=== PATIENT | female | born 1935 | race Caucasian/White ===

== ENCOUNTER 2017-01-26 18:25 | Observation (INO) | payer MEDICARE, OTHER ==
[2017-01-26 18:34] VITALS: PULSE 63; RESP 20; TEMP 98.3; O2SAT 99
[2017-01-26 19:14] LABS: RBC URINE < 1 /hpf (0-3); TRANSITIONAL EPITHIAL < 1 /hpf (0-3); URINE BACTERIA RARE (<OCC); URINE BILIRUBIN NEGATIVE (NEGATIVE); URINE BLOOD NEGATIVE (NEGATIVE); URINE COLOR Yellow (YELLOW); URINE GLUCOSE (UA) NORMAL (Normal); URINE KETONE NEGATIVE (NEGATIVE); URINE LEUKOCYTE ESTERASE 1+ Leu/uL (Negative); URINE PROTEIN NEGATIVE (NEGATIVE); URINE UROBILINOGEN NORMAL mg/dL (0.2-1.0); WBC URINE 1 /hpf (0-5)
--- NOTE | 2017-01-26 19:55 | C.PDOC ---
History Of Present Illness 81 y/o female presents to the ED with complaints of sharp LLQ abdominal pain radiating to left lower back x2 days. Pain worse with walking. Pt denies similar symptoms in the past. Denies fever, chills, nausea, vomiting, diarrhea, urinary changes, vaginal bleeding or any other complaints. PMD Mckay. NKDA Time Seen by Provider: 01/26/17 19:47 Chief Complaint (Nursing): Abdominal Pain History Per: Patient History/Exam Limitations: no limitations Onset/Duration Of Symptoms: Days Current Symptoms Are (Timing): Still Present Severity: Moderate Location Of Pain/Discomfort: LLQ Quality Of Discomfort: Sharp Associated Symptoms: denies: Fever, Nausea, Vomiting, Diarrhea, Urinary Symptoms Exacerbating Factors: Walking Alleviating Factors: None Recent travel outside of the [place]: No Additional History Per: Family Abnormal Vaginal Bleeding: No Past Medical History Reviewed: Historical Data, Nursing Documentation, Vital Signs Vital Signs: Last Vital Signs Temp 98.3 F 01/26/17 18:30 Pulse 63 01/26/17 18:30 Resp 20 01/26/17 18:30 BP 178/72 H 01/26/17 18:30 Pulse Ox 99 01/26/17 22:24 - Medical History PMH: Arthritis, HTN, Hypothyroidism Family History: States: Unknown Family Hx - Social History Hx Tobacco Use: No Hx Alcohol Use: No Hx Substance Use: No - Immunization History Hx Tetanus Toxoid Vaccination: No Hx Influenza Vaccination: No Hx Pneumococcal Vaccination: No Review Of Systems Except As Marked, All Systems Reviewed And Found Negative. Constitutional: Negative for: Fever, Chills Gastrointestinal: Positive for: Abdominal Pain (LLQ radiating to left lower back ). Negative for: Nausea, Vomiting, Diarrhea Genitourinary: Negative for: Dysuria, Frequency, Hematuria Physical Exam - Physical Exam Additional Physical Exam Comments: Constitutional: No acute distress. Head: Normocephalic. Atraumatic. Eyes: PERRL. Neck: Supple. Cardiovascular: Regular rate. Radial pulse 2+ bilaterally. Chest: No tenderness. Respiratory: Clear to auscultation bilaterally. GI: Soft. LLQ tenderness. No guarding or rebound. Nondistended. Back: No CVA tenderness. Musculoskeletal: No tenderness or swelling of extremities. Skin: No rash. Neurologic: Alert, no focal deficit. ED Course And Treatment - Laboratory Results Result Diagrams: 01/26/17 20:17 01/26/17 20:17 O2 Sat by Pulse Oximetry: 99 (room air) Pulse Ox Interpretation: Normal - CT Scan/US CT Abdomen and Pelvis With Intravenous Contrast Other Rad Studies (CT/US): Read By Radiologist, Radiology Report Reviewed CT/US Interpretation: IMPRESSION: Diverticulosis without CT findings of diverticulitis; constipation; ileus versus early obstruction possibly due to constipation; fatty liver, no acute solid visceral abnormality; gallstone ED OBSERVATION Discharge: Yes Time of observation admission: 20:00 - Observation admission statement Patient is being placed in observation because:: abd pain - Goals of Observation Goals of observation are:: CT - Progress Note Progress Note: [address] read. No acute distress. 2229 Patient in no acute distress. Labs unremarkable. CT shows constipation but patient reports BMs, unlikely obstruction and otherwise no acute pathology. Will discharge home, f/u PMD, return to ER for worsening pain, fever, vomiting, dysuria, or any other problem. Disposition - Disposition Disposition: HOME/ ROUTINE Disposition Time: 22:29 Condition: STABLE - Clinical Impression Clinical Impression: Abdominal pain - Scribe Statement The provider has reviewed the documentation as recorded by the Kerry Lara Provider Attestation: All medical record entries made by the Kerry were at my direction and personally dictated by me. I have reviewed the chart and agree that the record accurately reflects my personal performance of the history, physical exam, medical decision making, and the department course for this patient. I have also personally directed, reviewed, and agree with the discharge instructions and disposition.
[2017-01-26 20:22] LABS: BASO # 0.1 K/uL (0.0-0.2); BASO % 1.1 % (0.0-2.0); EOS # 0.9 K/uL (0.0-0.7); EOS % 11.9 % (0.0-4.0); LYMPH # 3.4 K/uL (1.0-4.3); LYMPH % 46.1 % (20.0-40.0); MEAN CELL VOLUME 89.1 fL (81.0-99.0); MEAN CORPUSCULAR HEMOGLOBIN 28.2 pg (27.0-31.0); MEAN CORPUSCULAR HGB CONC 31.7 g/dL (33.0-37.0); MEAN PLATELET VOLUME 10.4 fL (7.2-11.7); MONO # 0.6 K/uL (0.0-0.8); MONO % 8.1 % (0.0-10.0); WHITE BLOOD COUNT 7.4 K/uL (4.8-10.8)
[2017-01-26 20:45] LABS: CHLORIDE 107 mmol/L (98-107); SODIUM 141 mmol/L (132-148)
[2017-01-26 20:47] LABS: ALKALINE PHOSPHATASE 82 U/L (38-126); AST/SGOT 23 U/L (14-36); BILIRUBIN,TOTAL 0.5 mg/dL (0.2-1.3); BLOOD UREA NITROGEN 24 mg/dL (7-17); CARBON DIOXIDE 23 mmol/L (22-30); GFR AFRICAN-AMERICAN > 60; TOTAL PROTEIN 7.6 g/dL (6.3-8.3)
[2017-01-26 20:48] LABS: ALT/SGPT 22 U/L (9-52); CALCIUM 9.3 mg/dl (8.6-10.4); GLUCOSE,RANDOM 96 mg/dL (65-105)
[2017-01-26] MEDS ORDERED: Iodixanol 320 MG/ML 100 ML BOTTLE IV ONE (21:09)
--- NOTE | 2017-01-26 22:21 | CT ---
EXAM: CT Abdomen and Pelvis With Intravenous Contrast CLINICAL HISTORY: 81 years old, female; Pain; Abdominal pain; Localized; Left lower quadrant (llq); Additional info: Llq pain TECHNIQUE: Axial computed tomography images of the abdomen and pelvis with intravenous contrast. This CT exam was performed using one or more of the following dose reduction techniques: automated exposure control, adjustment of the mA and/or kV according to patient size, and/or use of iterative reconstruction technique. Coronal and sagittal reformatted images were created and reviewed. CONTRAST: 100 mL of visipaque 320 administered intravenously. EXAM DATE/TIME: 01/26/2017 7:56 PM COMPARISON: There are no prior studies for comparison. FINDINGS: Lower thorax: The heart is mildly enlarged. Distal descending aorta is ectatic. There is atelectasis at the lung bases. ABDOMEN: Liver: There is fatty infiltration of the liver. Gallbladder and bile ducts: Gallbladder is partially distended. There is a small stone in the gallbladder neck. Common bile duct is unremarkable. Pancreas: Pancreas is mildly atrophic. Spleen: unremarkable Adrenals: unremarkable Kidneys and ureters: unremarkable Stomach and bowel: Stomach is partially distended. Rotation is normal. Small bowel is distended with fluid and small amount of air. Terminal ileum is distended with fluid. Appendix is unremarkable. There is a moderately large amount of stool in the colon. There is descending and sigmoid colon diverticulosis. Appendix: See stomach and bowel PELVIS: Bladder: unremarkable Reproductive: Uterus is absent. There are no adnexal masses. ABDOMEN and PELVIS: Intraperitoneal space: There is no free air or free fluid. Bones/joints: There are degenerative changes in the osseus structures. Soft tissues: There is a small fat containing umbilical hernia. Vasculature: There are calcified phleboliths. Lymph nodes: Abdominal aorta is ectatic. There are vascular calcifications.There is no pathologic adenopathy. The IMPRESSION: Diverticulosis without CT findings of diverticulitis; constipation; ileus versus early obstruction possibly due to constipation; fatty liver, no acute solid visceral abnormality; gallstone Additional findings as described above.
[2017-01-26 23:02] VITALS: BP 176/88
== END 2017-01-26 22:57 | disposition home or self-care (01) ==
LOC: C.ER 18:25 → C.9OBSV 20:00
PROVIDERS: ADMIT Student in an Organized Health Care Education/Training Program; ATTEND Student in an Organized Health Care Education/Training Program
DX: R10.32 Left lower quadrant pain (principal)
CPT/HCPCS: 74177; 80053; 81001; 83690; 85025; 96374; 99285; G0378; J2270; Q9967

== ENCOUNTER 2017-09-20 08:47 | Inpatient (IN) | payer MEDICARE, OTHER ==
[2017-09-20 08:55] VITALS: BMI 24.2
[2017-09-20 10:46] LABS: INR 1.1; PROTHROMBIN TIME 12.6 SECONDS (9.7-12.2)
--- NOTE | 2017-09-20 10:46 | C.PDOC ---
History Of Present Illness 82 year old female presents to the ER complaining of 10 episodes of bleeding from rectum, onset this morning. Reports history of GI bleed, last was 4 years ago in the [facility] from unknown source. Last colonoscopy was here 1 year ago, with normal findings. Denies any dizziness, headache, shortness of breath, abdominal pain, vomiting, or diarrhea. PMD: Dr. Nolasco Time Seen by Provider: 09/20/17 09:18 Chief Complaint (Nursing): GI Problem History Per: Patient History/Exam Limitations: no limitations Onset/Duration Of Symptoms: Days (x1) Current Symptoms Are (Timing): Still Present Number Of Bleeding Episodes: Multiple: (10) Past Medical History Reviewed: Historical Data, Nursing Documentation, Vital Signs Vital Signs: Last Vital Signs Temp 98 F 09/20/17 14:13 Pulse 96 H 09/20/17 14:13 Resp 18 09/20/17 14:13 BP 105/87 09/20/17 14:13 Pulse Ox 100 09/20/17 14:13 - Medical History PMH: Arthritis, HTN, Hypothyroidism, Osteoporosis Other PMH: GI bleed Other Surgeries: Hysterectomy Family History: States: No Known Family Hx - Social History Hx Tobacco Use: No Hx Alcohol Use: No Hx Substance Use: No - Immunization History Hx Tetanus Toxoid Vaccination: No Hx Influenza Vaccination: No Hx Pneumococcal Vaccination: No Review Of Systems Except As Marked, All Systems Reviewed And Found Negative. Constitutional: Negative for: Fever, Chills Respiratory: Negative for: Shortness of Breath Gastrointestinal: Positive for: Other (Rectal bleeding x10). Negative for: Vomiting, Abdominal Pain, Diarrhea Neurological: Negative for: Weakness, Headache, Dizziness Physical Exam - Physical Exam Appears: Non-toxic, No Acute Distress Skin: Normal Color, Warm, Dry Head: Atraumatic, Normacephalic Eye(s): bilateral: Normal Inspection, PERRL, EOMI Oral Mucosa: Moist Neck: Normal, Normal ROM, Supple Chest: Symmetrical Cardiovascular: Rhythm Regular, No Murmur Respiratory: Normal Breath Sounds, No Accessory Muscle Use Gastrointestinal/Abdominal: Soft, No Tenderness Rectal: Heme Positive (bright red blood per rectum), Hemorrhoids (internal hemorrhoids noted), Other (Liquidy stool noted) Back: Normal Inspection, No CVA Tenderness, No Vertebral Tenderness Extremity: Bilateral: Atraumatic, Normal Color And Temperature, Normal ROM Neurological/Psych: Oriented x3, Normal Speech Gait: Steady ED Course And Treatment - Laboratory Results Result Diagrams: 09/20/17 13:48 09/20/17 10:27 Lab Interpretation: Abnormal (+ occult stool blood) ECG: Interpreted By Me, Viewed By Me ECG Rhythm: Sinus Rhythm Rate From EC O2 Sat by Pulse Oximetry: 100 (RA) Pulse Ox Interpretation: Normal - Radiology CXR: Interpreted by Me CXR Interpretation: Yes: No Acute Disease Progress Note: asymptomatic until approx 1330, pt syncopised in Bed 15, monitor tech HR 30's, agonal resps, lasting only a few seconds, and immediatly responded to painful stimulus and back to baseline with HR 100, SBP 140's. d/w Dr. Newton, gurpreet to ICU. d/w Dr. Reddy, understands pt upgraded to ICU. d/w Gaurav , GI Fellow- aware of pt's change of status, repeat CBC sent, bolus IVF's, 2 large bore IV's. Critical Care Time - Critical Care Note Total Time (in mins): 90 Documented critical care: time excludes all time spent performing seperately billable procedures. Medical Decision Making Medical Decision Making: Time: 9:25 Initial Plan: * Blood type and screen * CMP * Lipase * Troponin I * CBC * PTT * Prothrombin time * Occult blood, stool * Urinalysis 10:30 Will admit for lower GI bleed. Case discussed w/ Dr. Nolasco, who requests patient be admitted to hospitalist service. Paged GI on-call, Dr. Lebron, for consult 10:45 Spoke with GI fellow Gaurav, discussed case and results of last colonoscopy. Patient has history of diverticulosis, plan is observation and to defer colonoscopy until needed. Due to insurance and PMD, patient must be admitted to medical service. 12:30 Case discussed w/ gurpreet Bowen to admit patient. 1330: symptomatic- vasovagal. 1430: d/w GI Fellow, updated HGB 10.2, aware pt to ICU Disposition Counseled Patient/Family Regarding: Studies Performed - Disposition Disposition: HOSPITALIZED Disposition Time: 12:30 Condition: FAIR - POA Present On Arrival: None - Clinical Impression Clinical Impression: Lower GI bleed - Scribe Statement The provider has reviewed the documentation as recorded by the Kerry Valles Provider Attestation: All medical record entries made by the Kerry were at my direction and personally dictated by me. I have reviewed the chart and agree that the record accurately reflects my personal performance of the history, physical exam, medical decision making, and the department course for this patient. I have also personally directed, reviewed, and agree with the discharge instructions and disposition.
[2017-09-20 10:47] LABS: BASO % 0.8 % (0.0-2.0); EOS # 0.5 K/uL (0.0-0.7); EOS % 8.5 % (0.0-4.0); HEMOGLOBIN 12.5 g/dL (11.0-16.0); LYMPH # 2.1 K/uL (1.0-4.3); LYMPH % 36.2 % (20.0-40.0); MEAN CELL VOLUME 88.5 fL (81.0-99.0); MEAN CORPUSCULAR HEMOGLOBIN 28.6 pg (27.0-31.0); MEAN CORPUSCULAR HGB CONC 32.4 g/dL (33.0-37.0); MEAN PLATELET VOLUME 11.1 fL (7.2-11.7); MONO # 0.5 K/uL (0.0-0.8); NEUT # 2.7 K/uL (1.8-7.0); NEUT % 45.5 % (50.0-75.0); NRBC % 0.1 % (0.0-2.0); RBC 4.38 Mil/uL (3.80-5.20); RED CELL DISTRIBUTION WIDTH 14.2 % (11.5-14.5); WHITE BLOOD COUNT 5.9 K/uL (4.8-10.8)
[2017-09-20 11:05] LABS: ALB/GLOB RATIO 1.1 (1.0-2.1); ALBUMIN 3.7 g/dL (3.5-5.0); ALT/SGPT 27 U/L (9-52); AST/SGOT 40 U/L (14-36); BLOOD UREA NITROGEN 14 mg/dL (7-17); CALCIUM 9.1 mg/dl (8.6-10.4); GFR AFRICAN-AMERICAN > 60; GFR NON-AFRICAN AMERICAN > 60; LIPASE 89 U/L (23-300)
[2017-09-20 12:32] LABS: SQUAMOUS EPITHIAL 3 /hpf (0-5); URINE BILIRUBIN NEGATIVE (NEGATIVE); URINE BLOOD NEGATIVE (NEGATIVE); URINE CLARITY Hazy (Clear); URINE COLOR Yellow (YELLOW); URINE GLUCOSE (UA) NORMAL (Normal); URINE LEUKOCYTE ESTERASE TRACE Leu/uL (Negative); URINE NITRATE NEGATIVE (NEGATIVE); URINE PROTEIN NEGATIVE (NEGATIVE); URINE UROBILINOGEN NORMAL mg/dL (0.2-1.0)
--- NOTE | 2017-09-20 13:14 | RAD ---
HISTORY: adm COMPARISON: None available. TECHNIQUE: Chest, one view. FINDINGS: LUNGS: Right hilar prominence with external cardiac leads obscuring evaluation. No focal consolidation identified. Please note that chest x-ray has limited sensitivity for the detection of pulmonary masses. PLEURA: No significant pleural effusion identified. No definite pneumothorax . CARDIOVASCULAR: Heart size appears within normal limits. Dense atherosclerotic calcification of the aortic knob. OSSEOUS STRUCTURES: Degenerative changes. VISUALIZED UPPER ABDOMEN: Unremarkable. OTHER FINDINGS: None. IMPRESSION: Right hilar prominence with external cardiac leads obscuring evaluation. Suggest attention on follow-up chest x-ray.
[2017-09-20] MEDS ORDERED: Sodium Chloride 0.9% 1,000 ML IV ONE (13:43)
[2017-09-20 13:51] LABS: MEAN CELL VOLUME 88.3 fL (81.0-99.0); MEAN CORPUSCULAR HEMOGLOBIN 28.7 pg (27.0-31.0); MEAN CORPUSCULAR HGB CONC 32.5 g/dL (33.0-37.0); MEAN PLATELET VOLUME 10.6 fL (7.2-11.7); RBC 3.55 Mil/uL (3.80-5.20); RED CELL DISTRIBUTION WIDTH 13.9 % (11.5-14.5); WHITE BLOOD COUNT 8.2 K/uL (4.8-10.8)
--- NOTE | 2017-09-20 13:52 | CP.PCM.PN ---
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 PER KAYLEN PT ALSO HAD NEAR SYNCOPAL EPISODE IN THE ED THIS AFTERNOON AFTER BM. PER RN PT HAS HAD 4 BMS THAT ARE BRIGHT RED SINCE BEING IN THE ED. ER MD, DR. MURILLO, RECOMMENDS ICU EVAL; HIM AND MYSELF CONTACTED DR. PIKE FOR ICU EVAL AND PT ACCEPTED. DR. ARMENDARIZ AWARE OF CONSULT AND THAT PT WILL GO TO ICU. REPEAT LABS ORDERED AND I NOTIFIED DR. QUINTERO AND DR. ARMENDARIZ OF THE REPEAT CBC RESULT. ICU RESIDENT AND DR PIKE TO SEE PT AND WILL GIVE ORDERS. NO FURTHER ORDERS PER THIS [employer] STUFFER. Objective - Vital Signs/Intake and Output Vital Signs (last 24 hours): Temp Pulse Resp BP Pulse Ox 97.9 F 86 18 117/73 100 09/20/17 13:07 09/20/17 13:07 09/20/17 13:07 09/20/17 13:07 09/20/17 13:48 - Medications Medications: Current Medications Sodium Chloride (Sodium Chloride 0.9%) 1,000 mls @ 1,000 mls/hr IV .Q1H ONE Stop: 09/20/17 14:42 - Labs Labs: 09/20/17 10:27 09/20/17 10:27 PT 12.6 SECONDS (9.7-12.2) H 09/20/17 10:27 INR 1.1 09/20/17 10:27 APTT 30 SECONDS (21-34) 09/20/17 10:27
[2017-09-20 13:54] LABS: HEMOGLOBIN 10.2 g/dL (11.0-16.0)
--- NOTE | 2017-09-20 14:12 | CP.PCM.CON ---
<Abiodun Vargas - Last Filed: 09/20/17 17:15> History of Present Illness - History of Present Illness History of Present Illness: CC: Blood and clot in stool HPI: Mrs Lai is a 82 year old female with a PMHx of HTN, Hypothyroidism, Diverticulosis, who presented to the ER with blood and clot in the stool that began this morning at 6AM. Per daughter, she had 15 episodes of such bloody stools. Denies pain, fever, chills, or dietary changes. She had a similar presentation with bloody stools 4 years ago in the [place] however the patient and daughter are unsure of the diagnosis or treatment. She had a colonoscopy with Dr Moser on 08/05/2015 that showed diverticulosis and large internal hemorrhoids. In the ER the patient most likely had a vasovagal episode as her HR dropped into the 30s and BP dropped as well also with agonal respirations. She recovered within seconds and vitals quickly returned to normal. ICU has accepted the patient for closer monitoring. PMD: Dr Benja Baeza PMHx: HTN, Hypothyroidism, Diverticulosis, large internal hemorrhoids PSHx: Fibroid removal in 1980s, Tubal ligation Allergies: NKA Home medications: Multivitamin, Vitamind D, ASA 81mg PO QD, Levothyroxine 25mg 1 /2 tab BID, Norvasc 10mg PO QD FamHx: Brother - pancreatic CA, Niece - pancreatic CA SocialHx: Lives at home with daughter. Denies hx of tobacco, etoh, illicit drug use. Review of Systems - Constitutional Constitutional: Fatigue. absent: Chills, Fever - EENT Eyes: absent: Change in Vision - Cardiovascular Cardiovascular: absent: Chest Pain, Dyspnea - Respiratory Respiratory: absent: Cough - Gastrointestinal Gastrointestinal: Hematochezia, Loose Stools. absent: Abdominal Pain, Bloating , Early Satiety - Genitourinary Genitourinary: absent: Dysuria - Integumentary Integumentary: absent: Bleeding Lesions - Hematologic/Lymphatic Hematologic: As Per HPI. absent: Easy Bleeding Past Patient History - Past Social History Smoking Status: Never Smoked - CARDIAC Hx Hypertension: Yes - ENDOCRINE/METABOLIC Hx Hypothyroidism: Yes - MUSCULOSKELETAL/RHEUMATOLOGICAL Hx Arthritis: Yes Hx Osteoporosis: Yes - PSYCHIATRIC Hx Substance Use: No - SURGICAL HISTORY Hx Surgeries: Yes Hx Hysterectomy: Yes ( PER PATIENT) Other/Comment: fibroids - ANESTHESIA Hx Anesthesia: Yes Hx Anesthesia Reactions: No Meds Allergies/Adverse Reactions: Allergies Allergy/AdvReac Type Severity Reaction Status Date / Time No Known Allergies Allergy Verified 09/20/17 08:52 - Medications Medications: Current Medications Sodium Chloride (Sodium Chloride 0.9%) 1,000 mls @ 1,000 mls/hr IV .Q1H ONE Stop: 09/20/17 14:42 Last Admin: 09/20/17 13:15 Dose: 1,000 mls/hr Physical Exam - Constitutional Appears: Well, Non-toxic, No Acute Distress - Head Exam Head Exam: ATRAUMATIC, NORMAL INSPECTION - Eye Exam Eye Exam: EOMI - ENT Exam ENT Exam: Mucous Membranes Moist - Respiratory Exam Respiratory Exam: Clear to Auscultation Bilateral, NORMAL BREATHING PATTERN. absent: Rales, Rhonchi, Wheezes - Cardiovascular Exam Cardiovascular Exam: REGULAR RHYTHM, +S1, +S2. absent: Bradycardia, Tachycardia , JVD, Systolic Murmur - GI/Abdominal Exam GI & Abdominal Exam: Normal Bowel Sounds, Soft. absent: Tenderness - Rectal Exam Additional comments: Heme Positive (bright red blood per rectum), Hemorrhoids (internal hemorrhoids noted), Other (Liquidy stool noted) - Extremities Exam Extremities exam: Positive for: normal inspection - Neurological Exam Neurological exam: Oriented x3 - Skin Skin Exam: Normal Color, Warm Results - Vital Signs Recent Vital Signs: Last Vital Signs Temp 97.9 F 09/20/17 13:07 Pulse 86 09/20/17 13:07 Resp 18 09/20/17 13:07 BP 117/73 09/20/17 13:07 Pulse Ox 100 09/20/17 13:48 - Labs Result Diagrams: 09/20/17 13:48 09/20/17 10:27 Labs: Laboratory Results - last 24 hr 09/20/17 09/20/17 09/20/17 10:27 10:27 10:27 WBC 5.9 RBC 4.38 Hgb 12.5 Hct 38.8 MCV 88.5 MCH 28.6 MCHC 32.4 L RDW 14.2 Plt Count 186 MPV 11.1 Neut % (Auto) 45.5 L Lymph % (Auto) 36.2 [place] % (Auto) 9.0 Eos % (Auto) 8.5 H Baso % (Auto) 0.8 Neut # (Auto) 2.7 Lymph # (Auto) 2.1 [place] # (Auto) 0.5 Eos # (Auto) 0.5 Baso # (Auto) 0.0 PT 12.6 H INR 1.1 APTT 30 Sodium 138 Potassium 3.6 Chloride 105 Carbon Dioxide 25 Anion Gap 12 BUN 14 Creatinine 0.7 Est GFR ( Amer) > 60 Est GFR (Non-Af Amer) > 60 Random Glucose 95 Calcium 9.1 Total Bilirubin 0.5 AST 40 H ALT 27 Alkaline Phosphatase 81 Troponin I < 0.0120 Total Protein 7.3 Albumin 3.7 Globulin 3.6 Albumin/Globulin Ratio 1.1 Lipase 89 Urine Color Urine Clarity Urine pH Ur Specific [place] Urine Protein Urine Glucose (UA) Urine Ketones Urine Blood Urine Nitrate Urine Bilirubin Urine Urobilinogen Ur Leukocyte Esterase Urine WBC (Auto) Urine RBC (Auto) Ur Squamous Epith Cells Stool Occult Blood Blood Type Antibody Screen 09/20/17 09/20/17 09/20/17 10:27 10:27 12:08 WBC RBC Hgb Hct MCV MCH MCHC RDW Plt Count MPV Neut % (Auto) Lymph % (Auto) [place] % (Auto) Eos % (Auto) Baso % (Auto) Neut # (Auto) Lymph # (Auto) [place] # (Auto) Eos # (Auto) Baso # (Auto) PT INR APTT Sodium Potassium Chloride Carbon Dioxide Anion Gap BUN Creatinine Est GFR ( Amer) Est GFR (Non-Af Amer) Random Glucose Calcium Total Bilirubin AST ALT Alkaline Phosphatase Troponin I Total Protein Albumin Globulin Albumin/Globulin Ratio Lipase Urine Color Yellow Urine Clarity Hazy Urine pH 5.0 Ur Specific [place] 1.025 Urine Protein Negative Urine Glucose (UA) Normal Urine Ketones Negative Urine Blood Negative Urine Nitrate Negative Urine Bilirubin Negative Urine Urobilinogen Normal Ur Leukocyte Esterase Trace Urine WBC (Auto) 2 Urine RBC (Auto) 3 Ur Squamous Epith Cells 3 Stool Occult Blood Positive H Blood Type A POSITIVE Antibody Screen Negative 09/20/17 13:48 WBC 8.2 RBC 3.55 L Hgb 10.2 L D Hct 31.3 L MCV 88.3 MCH 28.7 MCHC 32.5 L RDW 13.9 Plt Count 162 MPV 10.6 Neut % (Auto) Lymph % (Auto) [place] % (Auto) Eos % (Auto) Baso % (Auto) Neut # (Auto) Lymph # (Auto) [place] # (Auto) Eos # (Auto) Baso # (Auto) PT INR APTT Sodium Potassium Chloride Carbon Dioxide Anion Gap BUN Creatinine Est GFR ( Amer) Est GFR (Non-Af Amer) Random Glucose Calcium Total Bilirubin AST ALT Alkaline Phosphatase Troponin I Total Protein Albumin Globulin Albumin/Globulin Ratio Lipase Urine Color Urine Clarity Urine pH Ur Specific [place] Urine Protein Urine Glucose (UA) Urine Ketones Urine Blood Urine Nitrate Urine Bilirubin Urine Urobilinogen Ur Leukocyte Esterase Urine WBC (Auto) Urine RBC (Auto) Ur Squamous Epith Cells Stool Occult Blood Blood Type Antibody Screen Assessment & Plan - Assessment and Plan (Free Text) Assessment: 82F with PMHx of HTN, Diverticulosis, Large internal hemorrhoids, Hypothyroidism , here with lower GI bleed: GI: Active lower GI bleed, Diverticulosis GI on board - Dr Moser Hgb dropped from 12.5 to 10.2 Lipase NORMAL, Electrolytes NORMAL NPO Fluids PPI drip NO anticoagulation Transfused 2u pRBCs Transfused platelets Cardio: HTN, Vasovagal episode in ER BP NORMAL, HR NORMAL Hold home med norvasc Troponin NEGATIVE EKG shows sinus rhythm with first degree AV block <Fco Newton - Last Filed: 09/20/17 18:16> Meds - Medications Medications: Current Medications Sodium Chloride (Sodium Chloride 0.9%) 1,000 mls @ 100 mls/hr IV .Q10H DAREN Pantoprazole Sodium 80 mg/ (Sodium Chloride) 100 mls @ 10 mls/hr IV .Q10H DAREN PRN Reason: 8 MG/HR Polyethylene Glycol/Electrolytes (Golytely) 2,000 ml PO ONCE ONE Stop: 09/21/17 06:01 Results - Vital Signs Recent Vital Signs: Last Vital Signs Temp 98.3 F 09/20/17 17:13 Pulse 62 09/20/17 17:59 Resp 20 09/20/17 17:59 BP 118/53 L 09/20/17 17:59 Pulse Ox 100 09/20/17 17:59 - Labs Result Diagrams: 09/20/17 13:48 09/20/17 10:27 Labs: Laboratory Results - last 24 hr 09/20/17 09/20/17 09/20/17 10:27 10:27 10:27 WBC 5.9 RBC 4.38 Hgb 12.5 Hct 38.8 MCV 88.5 MCH 28.6 MCHC 32.4 L RDW 14.2 Plt Count 186 MPV 11.1 Neut % (Auto) 45.5 L Lymph % (Auto) 36.2 [place] % (Auto) 9.0 Eos % (Auto) 8.5 H Baso % (Auto) 0.8 Neut # (Auto) 2.7 Lymph # (Auto) 2.1 [place] # (Auto) 0.5 Eos # (Auto) 0.5 Baso # (Auto) 0.0 PT 12.6 H INR 1.1 APTT 30 Sodium 138 Potassium 3.6 Chloride 105 Carbon Dioxide 25 Anion Gap 12 BUN 14 Creatinine 0.7 Est GFR ( Amer) > 60 Est GFR (Non-Af Amer) > 60 Random Glucose 95 Calcium 9.1 Total Bilirubin 0.5 AST 40 H ALT 27 Alkaline Phosphatase 81 Troponin I < 0.0120 Total Protein 7.3 Albumin 3.7 Globulin 3.6 Albumin/Globulin Ratio 1.1 Lipase 89 Urine Color Urine Clarity Urine pH Ur Specific [place] Urine Protein Urine Glucose (UA) Urine Ketones Urine Blood Urine Nitrate Urine Bilirubin Urine Urobilinogen Ur Leukocyte Esterase Urine WBC (Auto) Urine RBC (Auto) Ur Squamous Epith Cells Stool Occult Blood Blood Type Blood Type Confirm Antibody Screen 09/20/17 09/20/17 09/20/17 10:27 10:27 12:08 WBC RBC Hgb Hct MCV MCH MCHC RDW Plt Count MPV Neut % (Auto) Lymph % (Auto) [place] % (Auto) Eos % (Auto) Baso % (Auto) Neut # (Auto) Lymph # (Auto) [place] # (Auto) Eos # (Auto) Baso # (Auto) PT INR APTT Sodium Potassium Chloride Carbon Dioxide Anion Gap BUN Creatinine Est GFR ( Amer) Est GFR (Non-Af Amer) Random Glucose Calcium Total Bilirubin AST ALT Alkaline Phosphatase Troponin I Total Protein Albumin Globulin Albumin/Globulin Ratio Lipase Urine Color Yellow Urine Clarity Hazy Urine pH 5.0 Ur Specific [place] 1.025 Urine Protein Negative Urine Glucose (UA) Normal Urine Ketones Negative Urine Blood Negative Urine Nitrate Negative Urine Bilirubin Negative Urine Urobilinogen Normal Ur Leukocyte Esterase Trace Urine WBC (Auto) 2 Urine RBC (Auto) 3 Ur Squamous Epith Cells 3 Stool Occult Blood Positive H Blood Type A POSITIVE Blood Type Confirm A POSITIVE Antibody Screen Negative 09/20/17 13:48 WBC 8.2 RBC 3.55 L Hgb 10.2 L D Hct 31.3 L MCV 88.3 MCH 28.7 MCHC 32.5 L RDW 13.9 Plt Count 162 MPV 10.6 Neut % (Auto) Lymph % (Auto) [place] % (Auto) Eos % (Auto) Baso % (Auto) Neut # (Auto) Lymph # (Auto) [place] # (Auto) Eos # (Auto) Baso # (Auto) PT INR APTT Sodium Potassium Chloride Carbon Dioxide Anion Gap BUN Creatinine Est GFR ( Amer) Est GFR (Non-Af Amer) Random Glucose Calcium Total Bilirubin AST ALT Alkaline Phosphatase Troponin I Total Protein Albumin Globulin Albumin/Globulin Ratio Lipase Urine Color Urine Clarity Urine pH Ur Specific [place] Urine Protein Urine Glucose (UA) Urine Ketones Urine Blood Urine Nitrate Urine Bilirubin Urine Urobilinogen Ur Leukocyte Esterase Urine WBC (Auto) Urine RBC (Auto) Ur Squamous Epith Cells Stool Occult Blood Blood Type Blood Type Confirm Antibody Screen Attending/Attestation - Attestation I have personally seen and examined this patient.: Yes I have fully participated in the care of the patient.: Yes I have reviewed all pertinent clinical information: Yes Notes (Text): 09/20/17 18:15 patient seen and examined 82-year-old female admitted with rectal bleeding, patient had vasovagal episode with bradycardia and hypotension Transfuse packed RBCs Follow-up H&H seen by GI and Plan plan for colonoscopy tomorrow Protonix ICU monitoring
[2017-09-20] MEDS: Sodium Chloride 0.9% 1,000 ML IV SCH (16:00)
--- NOTE | 2017-09-20 16:55 | CP.PCM.CON ---
History of Present Illness - History of Present Illness History of Present Illness: This is an 82 year old woman with rectal bleeding. Screening colonoscopy was performed 08/05/2015 and showed diverticulosis and large internal hemorrhoids. Patient was in her usual state of health until this morning, when she noted sudden onset of rectal bleeding, bright red blood with clots. She had at least ten bloody bowel movements at home, and had multiple similar stools after arriving at the hospital. While still in the ER, she felt faint and BP and pulse dropped, returning within a few moments to normal. The last episode of bleeding was approximately one hour ago. She had a similar episode of bleeding four years ago in the [place]. At present, she denies having nausea, vomiting, abdominal pain, heartburn, difficulty swallowing, constipation and diarrhea. Review of Systems - Review of Systems All systems: reviewed and no additional remarkable complaints except - Constitutional Constitutional: Fatigue. absent: Chills, Fever - Cardiovascular Cardiovascular: absent: Chest Pain, Dyspnea - Respiratory Respiratory: absent: Cough - Gastrointestinal Gastrointestinal: Hematochezia. absent: Abdominal Pain, Constipation, Diarrhea , Dysphagia, Heartburn, Nausea, Vomiting - Genitourinary Genitourinary: absent: Dysuria Past Patient History - Past Social History Smoking Status: Never Smoked - CARDIAC Hx Hypertension: Yes - ENDOCRINE/METABOLIC Hx Hypothyroidism: Yes - MUSCULOSKELETAL/RHEUMATOLOGICAL Hx Falls: No - PSYCHIATRIC Hx Substance Use: No - SURGICAL HISTORY Hx Surgeries: Yes Hx Hysterectomy: Yes ( PER PATIENT) Other/Comment: fibroids - ANESTHESIA Hx Anesthesia: Yes Hx Anesthesia Reactions: No Meds Allergies/Adverse Reactions: Allergies Allergy/AdvReac Type Severity Reaction Status Date / Time No Known Allergies Allergy Verified 09/20/17 08:52 - Medications Medications: Current Medications Sodium Chloride (Sodium Chloride 0.9%) 1,000 mls @ 100 mls/hr IV .Q10H DAREN Pantoprazole Sodium 80 mg/ (Sodium Chloride) 100 mls @ 1,200 mls/hr IV ONCE ONE Stop: 09/20/17 17:04 Pantoprazole Sodium 80 mg/ (Sodium Chloride) 100 mls @ 10 mls/hr IVP .Q10H DAREN PRN Reason: 8 MG/HR Physical Exam - Constitutional Appears: No Acute Distress - Head Exam Head Exam: ATRAUMATIC, NORMOCEPHALIC - Eye Exam Eye Exam: EOMI, PERRL - Neck Exam Neck exam: Negative for: Lymphadenopathy, Thyromegaly - Respiratory Exam Respiratory Exam: NORMAL BREATHING PATTERN. absent: Rales, Rhonchi, Wheezes - Cardiovascular Exam Cardiovascular Exam: REGULAR RHYTHM, +S1, +S2. absent: Gallop, Rubs, Systolic Murmur - GI/Abdominal Exam GI & Abdominal Exam: Normal Bowel Sounds, Soft. absent: Mass, Organomegaly, Tenderness - Rectal Exam Rectal Exam: Deferred - Extremities Exam Extremities exam: Negative for: calf tenderness, pedal edema Results - Vital Signs Recent Vital Signs: Last Vital Signs Temp 98.3 F 09/20/17 16:43 Pulse 84 09/20/17 16:43 Resp 24 09/20/17 16:43 BP 123/74 09/20/17 16:43 Pulse Ox 98 09/20/17 16:10 - Labs Result Diagrams: 09/20/17 13:48 09/20/17 10:27 Labs: Laboratory Results - last 24 hr 09/20/17 09/20/17 09/20/17 10:27 10:27 10:27 WBC 5.9 RBC 4.38 Hgb 12.5 Hct 38.8 MCV 88.5 MCH 28.6 MCHC 32.4 L RDW 14.2 Plt Count 186 MPV 11.1 Neut % (Auto) 45.5 L Lymph % (Auto) 36.2 [place] % (Auto) 9.0 Eos % (Auto) 8.5 H Baso % (Auto) 0.8 Neut # (Auto) 2.7 Lymph # (Auto) 2.1 [place] # (Auto) 0.5 Eos # (Auto) 0.5 Baso # (Auto) 0.0 PT 12.6 H INR 1.1 APTT 30 Sodium 138 Potassium 3.6 Chloride 105 Carbon Dioxide 25 Anion Gap 12 BUN 14 Creatinine 0.7 Est GFR ( Amer) > 60 Est GFR (Non-Af Amer) > 60 Random Glucose 95 Calcium 9.1 Total Bilirubin 0.5 AST 40 H ALT 27 Alkaline Phosphatase 81 Troponin I < 0.0120 Total Protein 7.3 Albumin 3.7 Globulin 3.6 Albumin/Globulin Ratio 1.1 Lipase 89 Urine Color Urine Clarity Urine pH Ur Specific [place] Urine Protein Urine Glucose (UA) Urine Ketones Urine Blood Urine Nitrate Urine Bilirubin Urine Urobilinogen Ur Leukocyte Esterase Urine WBC (Auto) Urine RBC (Auto) Ur Squamous Epith Cells Stool Occult Blood Blood Type Blood Type Confirm Antibody Screen 09/20/17 09/20/17 09/20/17 10:27 10:27 12:08 WBC RBC Hgb Hct MCV MCH MCHC RDW Plt Count MPV Neut % (Auto) Lymph % (Auto) [place] % (Auto) Eos % (Auto) Baso % (Auto) Neut # (Auto) Lymph # (Auto) [place] # (Auto) Eos # (Auto) Baso # (Auto) PT INR APTT Sodium Potassium Chloride Carbon Dioxide Anion Gap BUN Creatinine Est GFR ( Amer) Est GFR (Non-Af Amer) Random Glucose Calcium Total Bilirubin AST ALT Alkaline Phosphatase Troponin I Total Protein Albumin Globulin Albumin/Globulin Ratio Lipase Urine Color Yellow Urine Clarity Hazy Urine pH 5.0 Ur Specific [place] 1.025 Urine Protein Negative Urine Glucose (UA) Normal Urine Ketones Negative Urine Blood Negative Urine Nitrate Negative Urine Bilirubin Negative Urine Urobilinogen Normal Ur Leukocyte Esterase Trace Urine WBC (Auto) 2 Urine RBC (Auto) 3 Ur Squamous Epith Cells 3 Stool Occult Blood Positive H Blood Type A POSITIVE Blood Type Confirm A POSITIVE Antibody Screen Negative 09/20/17 13:48 WBC 8.2 RBC 3.55 L Hgb 10.2 L D Hct 31.3 L MCV 88.3 MCH 28.7 MCHC 32.5 L RDW 13.9 Plt Count 162 MPV 10.6 Neut % (Auto) Lymph % (Auto) [place] % (Auto) Eos % (Auto) Baso % (Auto) Neut # (Auto) Lymph # (Auto) [place] # (Auto) Eos # (Auto) Baso # (Auto) PT INR APTT Sodium Potassium Chloride Carbon Dioxide Anion Gap BUN Creatinine Est GFR ( Amer) Est GFR (Non-Af Amer) Random Glucose Calcium Total Bilirubin AST ALT Alkaline Phosphatase Troponin I Total Protein Albumin Globulin Albumin/Globulin Ratio Lipase Urine Color Urine Clarity Urine pH Ur Specific [place] Urine Protein Urine Glucose (UA) Urine Ketones Urine Blood Urine Nitrate Urine Bilirubin Urine Urobilinogen Ur Leukocyte Esterase Urine WBC (Auto) Urine RBC (Auto) Ur Squamous Epith Cells Stool Occult Blood Blood Type Blood Type Confirm Antibody Screen Assessment & Plan (1) GI bleeding Assessment and Plan: Patient on aspirin with profuse rectal bleeding, drop in HGB from 12.5 to 10.2. This is likely a lower GI bleed related to diverticulosis, but it is possible that the source is a peptic ulcer with rapid transit. Recommend resuscitation with IV fluid, PRBCs and platelets. Start IV protonix. Follow CBC. Status: Acute
[2017-09-20] MEDS ORDERED: Pantoprazole 80 MG in Sodium Chloride 0.9% 100 ML IV ONE (17:00)
[2017-09-20] MEDS ORDERED: Peg-Electrolyte Oral Soln 4L (Golytely) PO ONE (18:00)
[2017-09-20] MEDS: Pantoprazole 80 MG in Sodium Chloride 0.9% 100 ML IV SCH (18:00)
--- NOTE | 2017-09-20 23:26 | CP.PCM.HP ---
History of Present Illness - History of Present Illness History of Present Illness: CC: rectal bleed HPI: 82 year old elderly female with h/o GI bleed in past presents to the ER complaining of 10 episodes of bleeding from rectum, onset this morning. Reports history of GI bleed, last was 4 years ago [place] from unknown source. Last colonoscopy was here 1 year ago, with normal findings. Denies any dizziness, headache, shortness of breath, abdominal pain, vomiting, or diarrhea. Present on Admission - Present on Admission Any Indicators Present on Admission: Yes Review of Systems - Review of Systems Systems not reviewed;Unavailable: Acuity of Condition - Constitutional Constitutional: Fatigue, Lethargy, Malaise - Gastrointestinal Gastrointestinal: Melena. absent: As Per HPI, Belching, Bloating, Change in Bowel Habits, Change in Stool Character, Coffee Ground Emesis, Constipation, Cramping, Diarrhea, Dyspepsia, Dysphagia, Early Satiety, Excessive Flatus, Fecal Incontinence, Heartburn, Hematemesis, Hematochezia, Loose Stools, Odynophagia, Temesmus, Vomiting, Other - Genitourinary Genitourinary: absent: As Per HPI, Change in Urinary Stream, Difficulty Urinating, Dysuria, Flank Pain, Hematuria, Pyuria, Nocturia, Urinary Incontinence, Urinary Frequency, Urinary Hesitance, Urinary Urgency, Voiding Freq/Small Amts, Freq UTI, Hx Renal/Bladder Calculi, Hx /Renal Surgery, Bladder Distension, Other - Musculoskeletal Musculoskeletal: Muscle Weakness, Myalgias, Stiffness - Integumentary Integumentary: Dry Skin - Psychiatric Psychiatric: Anxiety, Memory Loss - Endocrine Endocrine: absent: As Per HPI, Change in Body Appearance, Change in Libido, Cold Intolorance, Deepening of Voice, Excessive Sweating, Fatigue, Flushing, Heat Intolorance, Increase in Ring/Shoe/Hat Size, Palpitations, Polydipsia, Polyphagia, Polyuria, Other Past Patient History - Past Medical History & Family History Past Medical History?: Yes - Past Social History Smoking Status: Never Smoked - CARDIAC Hx Hypertension: Yes - PULMONARY Hx Respiratory Disorders: No - NEUROLOGICAL Hx Neurological Disorder: No - HEENT Hx HEENT Problems: Yes Hx Cataracts: Yes (bilateral) - RENAL Hx Chronic Kidney Disease: No - ENDOCRINE/METABOLIC Hx Hypothyroidism: Yes - HEMATOLOGICAL/ONCOLOGICAL Hx Blood Disorders: Yes Hx Blood Transfusions: Yes Hx Blood Transfusion Reaction: No - INTEGUMENTARY Hx Dermatological Problems: No - MUSCULOSKELETAL/RHEUMATOLOGICAL Hx Arthritis: Yes Hx Osteoporosis: Yes - GASTROINTESTINAL Hx Gastrointestinal Disorders: No Hx Diverticulitis: Yes Other/Comment: rectal bleed hx - GENITOURINARY/GYNECOLOGICAL Hx Genitourinary Disorders: No - PSYCHIATRIC Hx Substance Use: No - SURGICAL HISTORY Hx Surgeries: Yes Hx Hysterectomy: Yes ( PER PATIENT) Other/Comment: fibroids - ANESTHESIA Hx Anesthesia: Yes Hx Anesthesia Reactions: No Meds Allergies/Adverse Reactions: Allergies Allergy/AdvReac Type Severity Reaction Status Date / Time No Known Allergies Allergy Verified 09/20/17 08:52 Physical Exam - Constitutional Appears: No Acute Distress, Chronically Ill - Head Exam Head Exam: ATRAUMATIC, NORMAL INSPECTION, NORMOCEPHALIC - Eye Exam Eye Exam: EOMI, Normal appearance, PERRL Pupil Exam: NORMAL ACCOMODATION, PERRL - Respiratory Exam Respiratory Exam: Clear to Auscultation Bilateral, NORMAL BREATHING PATTERN - Cardiovascular Exam Cardiovascular Exam: REGULAR RHYTHM - GI/Abdominal Exam GI & Abdominal Exam: Normal Bowel Sounds, Soft. absent: Tenderness Results - Vital Signs Recent Vital Signs: Last Vital Signs Temp 98.4 F 09/20/17 23:01 Pulse 81 09/20/17 23:01 Resp 13 09/20/17 23:01 BP 162/68 H 09/20/17 23:01 Pulse Ox 100 09/20/17 22:50 - Labs Result Diagrams: 09/20/17 23:52 09/20/17 10:27 Labs: Laboratory Results - last 24 hr 09/20/17 09/20/17 09/20/17 10:27 10:27 10:27 WBC 5.9 RBC 4.38 Hgb 12.5 Hct 38.8 MCV 88.5 MCH 28.6 MCHC 32.4 L RDW 14.2 Plt Count 186 MPV 11.1 Neut % (Auto) 45.5 L Lymph % (Auto) 36.2 [place] % (Auto) 9.0 Eos % (Auto) 8.5 H Baso % (Auto) 0.8 Neut # (Auto) 2.7 Lymph # (Auto) 2.1 [place] # (Auto) 0.5 Eos # (Auto) 0.5 Baso # (Auto) 0.0 PT 12.6 H INR 1.1 APTT 30 Sodium 138 Potassium 3.6 Chloride 105 Carbon Dioxide 25 Anion Gap 12 BUN 14 Creatinine 0.7 Est GFR ( Amer) > 60 Est GFR (Non-Af Amer) > 60 Random Glucose 95 Calcium 9.1 Total Bilirubin 0.5 AST 40 H ALT 27 Alkaline Phosphatase 81 Troponin I < 0.0120 Total Protein 7.3 Albumin 3.7 Globulin 3.6 Albumin/Globulin Ratio 1.1 Lipase 89 Urine Color Urine Clarity Urine pH Ur Specific [place] Urine Protein Urine Glucose (UA) Urine Ketones Urine Blood Urine Nitrate Urine Bilirubin Urine Urobilinogen Ur Leukocyte Esterase Urine WBC (Auto) Urine RBC (Auto) Ur Squamous Epith Cells Stool Occult Blood Blood Type Blood Type Confirm Antibody Screen 09/20/17 09/20/17 09/20/17 10:27 10:27 12:08 WBC RBC Hgb Hct MCV MCH MCHC RDW Plt Count MPV Neut % (Auto) Lymph % (Auto) [place] % (Auto) Eos % (Auto) Baso % (Auto) Neut # (Auto) Lymph # (Auto) [place] # (Auto) Eos # (Auto) Baso # (Auto) PT INR APTT Sodium Potassium Chloride Carbon Dioxide Anion Gap BUN Creatinine Est GFR ( Amer) Est GFR (Non-Af Amer) Random Glucose Calcium Total Bilirubin AST ALT Alkaline Phosphatase Troponin I Total Protein Albumin Globulin Albumin/Globulin Ratio Lipase Urine Color Yellow Urine Clarity Hazy Urine pH 5.0 Ur Specific [place] 1.025 Urine Protein Negative Urine Glucose (UA) Normal Urine Ketones Negative Urine Blood Negative Urine Nitrate Negative Urine Bilirubin Negative Urine Urobilinogen Normal Ur Leukocyte Esterase Trace Urine WBC (Auto) 2 Urine RBC (Auto) 3 Ur Squamous Epith Cells 3 Stool Occult Blood Positive H Blood Type A POSITIVE Blood Type Confirm A POSITIVE Antibody Screen Negative 09/20/17 13:48 WBC 8.2 RBC 3.55 L Hgb 10.2 L D Hct 31.3 L MCV 88.3 MCH 28.7 MCHC 32.5 L RDW 13.9 Plt Count 162 MPV 10.6 Neut % (Auto) Lymph % (Auto) [place] % (Auto) Eos % (Auto) Baso % (Auto) Neut # (Auto) Lymph # (Auto) [place] # (Auto) Eos # (Auto) Baso # (Auto) PT INR APTT Sodium Potassium Chloride Carbon Dioxide Anion Gap BUN Creatinine Est GFR ( Amer) Est GFR (Non-Af Amer) Random Glucose Calcium Total Bilirubin AST ALT Alkaline Phosphatase Troponin I Total Protein Albumin Globulin Albumin/Globulin Ratio Lipase Urine Color Urine Clarity Urine pH Ur Specific [place] Urine Protein Urine Glucose (UA) Urine Ketones Urine Blood Urine Nitrate Urine Bilirubin Urine Urobilinogen Ur Leukocyte Esterase Urine WBC (Auto) Urine RBC (Auto) Ur Squamous Epith Cells Stool Occult Blood Blood Type Blood Type Confirm Antibody Screen Assessment & Plan (1) GI bleeding Assessment and Plan: rule out angiodysplasia, colon polyps Status: Acute (2) Hypokalemia Status: Acute
[2017-09-20 23:54] LABS: BASO % 0.5 % (0.0-2.0); EOS # 0.2 K/uL (0.0-0.7); HEMOGLOBIN 10.4 g/dL (11.0-16.0); LYMPH # 1.6 K/uL (1.0-4.3); LYMPH % 20.9 % (20.0-40.0); MEAN CORPUSCULAR HEMOGLOBIN 28.5 pg (27.0-31.0); MEAN CORPUSCULAR HGB CONC 33.2 g/dL (33.0-37.0); MEAN PLATELET VOLUME 9.5 fL (7.2-11.7); MONO # 0.5 K/uL (0.0-0.8); MONO % 6.6 % (0.0-10.0); NEUT # 5.4 K/uL (1.8-7.0); RBC 3.65 Mil/uL (3.80-5.20); RED CELL DISTRIBUTION WIDTH 15.4 % (11.5-14.5); WHITE BLOOD COUNT 7.8 K/uL (4.8-10.8)
[2017-09-21] MEDS: Sodium Chloride 0.9% 1,000 ML IV SCH ×4 (01:33→21:30)
[2017-09-21] MEDS ORDERED: Metoprolol 1 mg/ml Inj IVP ONE (01:42)
[2017-09-21] MEDS: Pantoprazole 80 MG in Sodium Chloride 0.9% 100 ML IV SCH ×2 (03:49→16:16)
[2017-09-21] MEDS ORDERED: Peg-Electrolyte Oral Soln 4L (Golytely) PO ONE (06:00)
[2017-09-21 06:21] LABS: HEMOGLOBIN 10.2 g/dL (11.0-16.0); MEAN CELL VOLUME 85.2 fL (81.0-99.0); MEAN CORPUSCULAR HEMOGLOBIN 28.3 pg (27.0-31.0); MEAN CORPUSCULAR HGB CONC 33.2 g/dL (33.0-37.0); MEAN PLATELET VOLUME 9.2 fL (7.2-11.7); RBC 3.61 Mil/uL (3.80-5.20); RED CELL DISTRIBUTION WIDTH 15.4 % (11.5-14.5); WHITE BLOOD COUNT 8.5 K/uL (4.8-10.8)
[2017-09-21 06:34] LABS: ALB/GLOB RATIO 1.1 (1.0-2.1); ALBUMIN 3.3 g/dL (3.5-5.0); ALT/SGPT 25 U/L (9-52); AST/SGOT 28 U/L (14-36); BLOOD UREA NITROGEN 9 mg/dL (7-17); CALCIUM 8.3 mg/dl (8.6-10.4); GFR AFRICAN-AMERICAN > 60; GFR NON-AFRICAN AMERICAN > 60; MAGNESIUM 1.9 mg/dL (1.6-2.3)
[2017-09-21] MEDS ORDERED: Potassium Chloride 20 mEq/15 ml LIQ UD PO SCH (07:00)
[2017-09-21] MEDS ORDERED: Potassium Chloride 20 mEq ER Tab PO SCH (07:30)
--- NOTE | 2017-09-21 08:36 | CP.CCUPN ---
CCU Subjective - Physician Review Subjective (Free Text): 09/21/17 08:35 Patient seen and examined at bedside. Per nursing patient had one episode of clear liquid emesis overnight. Reglan was given. 09/21/17 08:37 Critical Care Time Spent (in minutes): 45 CCU Objective - Vital Signs / Intake & Output Vital Signs (Last 4 hours): Vital Signs Pulse Resp BP Pulse Ox 09/21/17 07:10 74 16 99 09/21/17 07:00 73 15 99 09/21/17 06:50 70 17 98 09/21/17 06:40 69 19 98 09/21/17 06:30 82 17 97 09/21/17 06:24 61 21 117/53 L 99 09/21/17 06:20 77 11 L 100 09/21/17 06:10 71 19 99 09/21/17 06:00 77 18 98 09/21/17 05:50 82 21 99 09/21/17 05:40 80 22 99 09/21/17 05:30 72 21 99 09/21/17 05:23 83 21 133/76 99 09/21/17 05:20 82 19 99 09/21/17 05:10 102 H 28 H 87 L 09/21/17 05:00 77 17 98 09/21/17 04:50 76 20 98 09/21/17 04:40 76 17 98 Intake and Output (Last 8hrs): Intake & Output 09/20/17 09/21/17 09/21/17 22:59 06:59 14:59 Intake Total 2778 1386 210 Output Total 2550 1700 200 Balance 228 -314 10 Weight 103 lb Intake: Intake, IV Amount 1068 780 210 Left Antecubital 900 700 200 Right Antecubital 168 80 10 Oral 1060 Blood Product 650 606 Apheresis Plts Acda Lr 0 303 Irr Unit [id number] Red Blood Cells Cpd As1 325 Lr Unit [id number] Output: Urine 650 1000 200 Urine, Voided 650 1000 200 Stool 1900 500 Emesis 200 Other: # Voids Urine, Voided 1 # Bowel Movements 2 1 - Physical Exam Head: Positive for: Atraumatic, Normocephalic Pupils: Positive for: PERRL Extroacular Muscles: Positive for: EOMI Conjunctiva: Positive for: Normal Neck: Positive for: Normal Range of Motion Respiratory/Chest: Positive for: Good Air Exchange, Tender to Palpation Cardiovascular: Positive for: Regular Rate and Rhythm Abdomen: Positive for: Normal Bowel Sounds Neurological: Positive for: Speech Normal Skin: Positive for: Dry, Normal Color Psychiatric: Positive for: Oriented x 3 - Medications Active Medications: Active Medications Generic Name Dose Route Start Last Admin Trade Name Freq PRN Reason Stop Dose Admin Sodium Chloride 1,000 mls @ 100 mls/hr 09/20/17 15:30 09/21/17 06:43 Sodium Chloride 0.9% IV 100 mls/hr .Q10H DAREN Administration Pantoprazole Sodium 80 mg/ 100 mls @ 10 mls/hr 09/20/17 17:05 09/21/17 03:49 Sodium Chloride IV 10 mls/hr .Q10H DAREN Administration 8 MG/HR Potassium Chloride 10 meq in 100 mls @ 100 mls/hr 09/21/17 07:00 09/21/17 08: 03 Potassium Chloride 10 Meq/100 Ml IVPB 09/21/17 09:59 Not Given Q1H DAREN Potassium Chloride 20 meq in 100 mls @ 50 mls/hr 09/21/17 08:00 09/21/17 08: 08 Potassium Chloride 20 Meq/100 Ml IVPB 09/21/17 10:01 50 mls/hr Q2 DAREN Administration Potassium Chloride 40 meq 09/21/17 07:30 K-Dur 20 Meq Er Tab PO ONCE DAREN - Patient Studies Lab Studies: Lab Studies 09/21/17 09/21/17 09/20/17 Range/Units 06:07 06:05 23:52 WBC 8.5 7.8 (4.8-10.8) K/uL RBC 3.61 L 3.65 L (3.80-5.20) Mil/uL Hgb 10.2 L 10.4 L (11.0-16.0) g/dL Hct 30.7 L 31.4 L (34.0-47.0) % MCV 85.2 86.0 D (81.0-99.0) fL MCH 28.3 28.5 (27.0-31.0) pg MCHC 33.2 33.2 (33.0-37.0) g/dL RDW 15.4 H 15.4 H (11.5-14.5) % Plt Count 204 165 (130-400) K/uL MPV 9.2 9.5 (7.2-11.7) fL Neut % (Auto) 69.0 (50.0-75.0) % Lymph % (Auto) 20.9 (20.0-40.0) % [place] % (Auto) 6.6 (0.0-10.0) % Eos % (Auto) 3.0 (0.0-4.0) % Baso % (Auto) 0.5 (0.0-2.0) % Neut # (Auto) 5.4 (1.8-7.0) K/uL Lymph # (Auto) 1.6 (1.0-4.3) K/uL [place] # (Auto) 0.5 (0.0-0.8) K/uL Eos # (Auto) 0.2 (0.0-0.7) K/uL Baso # (Auto) 0.0 (0.0-0.2) K/uL PT (9.7-12.2) SECONDS INR APTT (21-34) SECONDS Sodium 145 (132-148) mmol/L Potassium 3.3 L (3.6-5.2) mmol/L Chloride 113 H (98-107) mmol/L Carbon Dioxide 23 (22-30) mmol/L Anion Gap 12 (10-20) BUN 9 (7-17) mg/dL Creatinine 0.5 L (0.7-1.2) mg/dL Est GFR ( Amer) > 60 Est GFR (Non-Af Amer) > 60 Random Glucose 98 (65-105) mg/dL Calcium 8.3 L (8.6-10.4) mg/dl Phosphorus 2.5 (2.5-4.5) mg/dL Magnesium 1.9 (1.6-2.3) mg/dL Total Bilirubin 0.4 (0.2-1.3) mg/dL AST 28 (14-36) U/L ALT 25 (9-52) U/L Alkaline Phosphatase 60 (38-126) U/L Troponin I (0.00-0.120) ng/mL Total Protein 6.3 (6.3-8.3) g/dL Albumin 3.3 L (3.5-5.0) g/dL Globulin 3.1 (2.2-3.9) gm/dL Albumin/Globulin Ratio 1.1 (1.0-2.1) Lipase (23-300) U/L Urine Color (YELLOW) Urine Clarity (Clear) Urine pH (5.0-8.0) Ur Specific Yulan (1.003-1.030) Urine Protein (NEGATIVE) mg/dL Urine Glucose (UA) (Normal) mg/dL Urine Ketones (NEGATIVE) mg/dL Urine Blood (NEGATIVE) Urine Nitrate (NEGATIVE) Urine Bilirubin (NEGATIVE) Urine Urobilinogen (0.2-1.0) mg/dL Ur Leukocyte Esterase (Negative) Ric/uL Urine WBC (Auto) (0-5) /hpf Urine RBC (Auto) (0-3) /hpf Ur Squamous Epith Cells (0-5) /hpf Stool Occult Blood (NEGATIVE) Blood Type Blood Type Confirm Antibody Screen 09/20/17 09/20/17 09/20/17 Range/Units 13:48 12:08 10:27 WBC 8.2 (4.8-10.8) K/uL RBC 3.55 L (3.80-5.20) Mil/uL Hgb 10.2 L D (11.0-16.0) g/dL Hct 31.3 L (34.0-47.0) % MCV 88.3 (81.0-99.0) fL MCH 28.7 (27.0-31.0) pg MCHC 32.5 L (33.0-37.0) g/dL RDW 13.9 (11.5-14.5) % Plt Count 162 (130-400) K/uL MPV 10.6 (7.2-11.7) fL Neut % (Auto) (50.0-75.0) % Lymph % (Auto) (20.0-40.0) % [place] % (Auto) (0.0-10.0) % Eos % (Auto) (0.0-4.0) % Baso % (Auto) (0.0-2.0) % Neut # (Auto) (1.8-7.0) K/uL Lymph # (Auto) (1.0-4.3) K/uL [place] # (Auto) (0.0-0.8) K/uL Eos # (Auto) (0.0-0.7) K/uL Baso # (Auto) (0.0-0.2) K/uL PT (9.7-12.2) SECONDS INR APTT (21-34) SECONDS Sodium (132-148) mmol/L Potassium (3.6-5.2) mmol/L Chloride (98-107) mmol/L Carbon Dioxide (22-30) mmol/L Anion Gap (10-20) BUN (7-17) mg/dL Creatinine (0.7-1.2) mg/dL Est GFR ( Amer) Est GFR (Non-Af Amer) Random Glucose (65-105) mg/dL Calcium (8.6-10.4) mg/dl Phosphorus (2.5-4.5) mg/dL Magnesium (1.6-2.3) mg/dL Total Bilirubin (0.2-1.3) mg/dL AST (14-36) U/L ALT (9-52) U/L Alkaline Phosphatase (38-126) U/L Troponin I (0.00-0.120) ng/mL Total Protein (6.3-8.3) g/dL Albumin (3.5-5.0) g/dL Globulin (2.2-3.9) gm/dL Albumin/Globulin Ratio (1.0-2.1) Lipase (23-300) U/L Urine Color Yellow (YELLOW) Urine Clarity Hazy (Clear) Urine pH 5.0 (5.0-8.0) Ur Specific Yulan 1.025 (1.003-1.030) Urine Protein Negative (NEGATIVE) mg/dL Urine Glucose (UA) Normal (Normal) mg/dL Urine Ketones Negative (NEGATIVE) mg/dL Urine Blood Negative (NEGATIVE) Urine Nitrate Negative (NEGATIVE) Urine Bilirubin Negative (NEGATIVE) Urine Urobilinogen Normal (0.2-1.0) mg/dL Ur Leukocyte Esterase Trace (Negative) Ric/uL Urine WBC (Auto) 2 (0-5) /hpf Urine RBC (Auto) 3 (0-3) /hpf Ur Squamous Epith Cells 3 (0-5) /hpf Stool Occult Blood Positive H (NEGATIVE) Blood Type Blood Type Confirm Antibody Screen 09/20/17 09/20/17 09/20/17 Range/Units 10:27 10:27 10:27 WBC (4.8-10.8) K/uL RBC (3.80-5.20) Mil/uL Hgb (11.0-16.0) g/dL Hct (34.0-47.0) % MCV (81.0-99.0) fL MCH (27.0-31.0) pg MCHC (33.0-37.0) g/dL RDW (11.5-14.5) % Plt Count (130-400) K/uL MPV (7.2-11.7) fL Neut % (Auto) (50.0-75.0) % Lymph % (Auto) (20.0-40.0) % [place] % (Auto) (0.0-10.0) % Eos % (Auto) (0.0-4.0) % Baso % (Auto) (0.0-2.0) % Neut # (Auto) (1.8-7.0) K/uL Lymph # (Auto) (1.0-4.3) K/uL [place] # (Auto) (0.0-0.8) K/uL Eos # (Auto) (0.0-0.7) K/uL Baso # (Auto) (0.0-0.2) K/uL PT 12.6 H (9.7-12.2) SECONDS INR 1.1 APTT 30 (21-34) SECONDS Sodium 138 (132-148) mmol/L Potassium 3.6 (3.6-5.2) mmol/L Chloride 105 (98-107) mmol/L Carbon Dioxide 25 (22-30) mmol/L Anion Gap 12 (10-20) BUN 14 (7-17) mg/dL Creatinine 0.7 (0.7-1.2) mg/dL Est GFR ( Amer) > 60 Est GFR (Non-Af Amer) > 60 Random Glucose 95 (65-105) mg/dL Calcium 9.1 (8.6-10.4) mg/dl Phosphorus (2.5-4.5) mg/dL Magnesium (1.6-2.3) mg/dL Total Bilirubin 0.5 (0.2-1.3) mg/dL AST 40 H (14-36) U/L ALT 27 (9-52) U/L Alkaline Phosphatase 81 (38-126) U/L Troponin I < 0.0120 (0.00-0.120) ng/mL Total Protein 7.3 (6.3-8.3) g/dL Albumin 3.7 (3.5-5.0) g/dL Globulin 3.6 (2.2-3.9) gm/dL Albumin/Globulin Ratio 1.1 (1.0-2.1) Lipase 89 (23-300) U/L Urine Color (YELLOW) Urine Clarity (Clear) Urine pH (5.0-8.0) Ur Specific Yulan (1.003-1.030) Urine Protein (NEGATIVE) mg/dL Urine Glucose (UA) (Normal) mg/dL Urine Ketones (NEGATIVE) mg/dL Urine Blood (NEGATIVE) Urine Nitrate (NEGATIVE) Urine Bilirubin (NEGATIVE) Urine Urobilinogen (0.2-1.0) mg/dL Ur Leukocyte Esterase (Negative) Ric/uL Urine WBC (Auto) (0-5) /hpf Urine RBC (Auto) (0-3) /hpf Ur Squamous Epith Cells (0-5) /hpf Stool Occult Blood (NEGATIVE) Blood Type A POSITIVE Blood Type Confirm A POSITIVE Antibody Screen Negative 09/20/17 Range/Units 10:27 WBC 5.9 (4.8-10.8) K/uL RBC 4.38 (3.80-5.20) Mil/uL Hgb 12.5 (11.0-16.0) g/dL Hct 38.8 (34.0-47.0) % MCV 88.5 (81.0-99.0) fL MCH 28.6 (27.0-31.0) pg MCHC 32.4 L (33.0-37.0) g/dL RDW 14.2 (11.5-14.5) % Plt Count 186 (130-400) K/uL MPV 11.1 (7.2-11.7) fL Neut % (Auto) 45.5 L (50.0-75.0) % Lymph % (Auto) 36.2 (20.0-40.0) % [place] % (Auto) 9.0 (0.0-10.0) % Eos % (Auto) 8.5 H (0.0-4.0) % Baso % (Auto) 0.8 (0.0-2.0) % Neut # (Auto) 2.7 (1.8-7.0) K/uL Lymph # (Auto) 2.1 (1.0-4.3) K/uL [place] # (Auto) 0.5 (0.0-0.8) K/uL Eos # (Auto) 0.5 (0.0-0.7) K/uL Baso # (Auto) 0.0 (0.0-0.2) K/uL PT (9.7-12.2) SECONDS INR APTT (21-34) SECONDS Sodium (132-148) mmol/L Potassium (3.6-5.2) mmol/L Chloride (98-107) mmol/L Carbon Dioxide (22-30) mmol/L Anion Gap (10-20) BUN (7-17) mg/dL Creatinine (0.7-1.2) mg/dL Est GFR ( Amer) Est GFR (Non-Af Amer) Random Glucose (65-105) mg/dL Calcium (8.6-10.4) mg/dl Phosphorus (2.5-4.5) mg/dL Magnesium (1.6-2.3) mg/dL Total Bilirubin (0.2-1.3) mg/dL AST (14-36) U/L ALT (9-52) U/L Alkaline Phosphatase (38-126) U/L Troponin I (0.00-0.120) ng/mL Total Protein (6.3-8.3) g/dL Albumin (3.5-5.0) g/dL Globulin (2.2-3.9) gm/dL Albumin/Globulin Ratio (1.0-2.1) Lipase (23-300) U/L Urine Color (YELLOW) Urine Clarity (Clear) Urine pH (5.0-8.0) Ur Specific Yulan (1.003-1.030) Urine Protein (NEGATIVE) mg/dL Urine Glucose (UA) (Normal) mg/dL Urine Ketones (NEGATIVE) mg/dL Urine Blood (NEGATIVE) Urine Nitrate (NEGATIVE) Urine Bilirubin (NEGATIVE) Urine Urobilinogen (0.2-1.0) mg/dL Ur Leukocyte Esterase (Negative) Ric/uL Urine WBC (Auto) (0-5) /hpf Urine RBC (Auto) (0-3) /hpf Ur Squamous Epith Cells (0-5) /hpf Stool Occult Blood (NEGATIVE) Blood Type Blood Type Confirm Antibody Screen Laboratory Results - last 24 hr 09/20/17 09/20/17 09/20/17 10:27 10:27 10:27 WBC 5.9 RBC 4.38 Hgb 12.5 Hct 38.8 MCV 88.5 MCH 28.6 MCHC 32.4 L RDW 14.2 Plt Count 186 MPV 11.1 Neut % (Auto) 45.5 L Lymph % (Auto) 36.2 [place] % (Auto) 9.0 Eos % (Auto) 8.5 H Baso % (Auto) 0.8 Neut # (Auto) 2.7 Lymph # (Auto) 2.1 [place] # (Auto) 0.5 Eos # (Auto) 0.5 Baso # (Auto) 0.0 PT 12.6 H INR 1.1 APTT 30 Sodium 138 Potassium 3.6 Chloride 105 Carbon Dioxide 25 Anion Gap 12 BUN 14 Creatinine 0.7 Est GFR ( Amer) > 60 Est GFR (Non-Af Amer) > 60 Random Glucose 95 Calcium 9.1 Phosphorus Magnesium Total Bilirubin 0.5 AST 40 H ALT 27 Alkaline Phosphatase 81 Troponin I < 0.0120 Total Protein 7.3 Albumin 3.7 Globulin 3.6 Albumin/Globulin Ratio 1.1 Lipase 89 Urine Color Urine Clarity Urine pH Ur Specific Yulan Urine Protein Urine Glucose (UA) Urine Ketones Urine Blood Urine Nitrate Urine Bilirubin Urine Urobilinogen Ur Leukocyte Esterase Urine WBC (Auto) Urine RBC (Auto) Ur Squamous Epith Cells Stool Occult Blood Blood Type Blood Type Confirm Antibody Screen 09/20/17 09/20/17 09/20/17 10:27 10:27 12:08 WBC RBC Hgb Hct MCV MCH MCHC RDW Plt Count MPV Neut % (Auto) Lymph % (Auto) [place] % (Auto) Eos % (Auto) Baso % (Auto) Neut # (Auto) Lymph # (Auto) [place] # (Auto) Eos # (Auto) Baso # (Auto) PT INR APTT Sodium Potassium Chloride Carbon Dioxide Anion Gap BUN Creatinine Est GFR ( Amer) Est GFR (Non-Af Amer) Random Glucose Calcium Phosphorus Magnesium Total Bilirubin AST ALT Alkaline Phosphatase Troponin I Total Protein Albumin Globulin Albumin/Globulin Ratio Lipase Urine Color Yellow Urine Clarity Hazy Urine pH 5.0 Ur Specific Yulan 1.025 Urine Protein Negative Urine Glucose (UA) Normal Urine Ketones Negative Urine Blood Negative Urine Nitrate Negative Urine Bilirubin Negative Urine Urobilinogen Normal Ur Leukocyte Esterase Trace Urine WBC (Auto) 2 Urine RBC (Auto) 3 Ur Squamous Epith Cells 3 Stool Occult Blood Positive H Blood Type A POSITIVE Blood Type Confirm A POSITIVE Antibody Screen Negative 09/20/17 09/20/17 09/21/17 13:48 23:52 06:05 WBC 8.2 7.8 RBC 3.55 L 3.65 L Hgb 10.2 L D 10.4 L Hct 31.3 L 31.4 L MCV 88.3 86.0 D MCH 28.7 28.5 MCHC 32.5 L 33.2 RDW 13.9 15.4 H Plt Count 162 165 MPV 10.6 9.5 Neut % (Auto) 69.0 Lymph % (Auto) 20.9 [place] % (Auto) 6.6 Eos % (Auto) 3.0 Baso % (Auto) 0.5 Neut # (Auto) 5.4 Lymph # (Auto) 1.6 [place] # (Auto) 0.5 Eos # (Auto) 0.2 Baso # (Auto) 0.0 PT INR APTT Sodium 145 Potassium 3.3 L Chloride 113 H Carbon Dioxide 23 Anion Gap 12 BUN 9 Creatinine 0.5 L Est GFR ( Amer) > 60 Est GFR (Non-Af Amer) > 60 Random Glucose 98 Calcium 8.3 L Phosphorus 2.5 Magnesium 1.9 Total Bilirubin 0.4 AST 28 ALT 25 Alkaline Phosphatase 60 Troponin I Total Protein 6.3 Albumin 3.3 L Globulin 3.1 Albumin/Globulin Ratio 1.1 Lipase Urine Color Urine Clarity Urine pH Ur Specific Yulan Urine Protein Urine Glucose (UA) Urine Ketones Urine Blood Urine Nitrate Urine Bilirubin Urine Urobilinogen Ur Leukocyte Esterase Urine WBC (Auto) Urine RBC (Auto) Ur Squamous Epith Cells Stool Occult Blood Blood Type Blood Type Confirm Antibody Screen 09/21/17 06:07 WBC 8.5 RBC 3.61 L Hgb 10.2 L Hct 30.7 L MCV 85.2 MCH 28.3 MCHC 33.2 RDW 15.4 H Plt Count 204 MPV 9.2 Neut % (Auto) Lymph % (Auto) [place] % (Auto) Eos % (Auto) Baso % (Auto) Neut # (Auto) Lymph # (Auto) [place] # (Auto) Eos # (Auto) Baso # (Auto) PT INR APTT Sodium Potassium Chloride Carbon Dioxide Anion Gap BUN Creatinine Est GFR ( Amer) Est GFR (Non-Af Amer) Random Glucose Calcium Phosphorus Magnesium Total Bilirubin AST ALT Alkaline Phosphatase Troponin I Total Protein Albumin Globulin Albumin/Globulin Ratio Lipase Urine Color Urine Clarity Urine pH Ur Specific Yulan Urine Protein Urine Glucose (UA) Urine Ketones Urine Blood Urine Nitrate Urine Bilirubin Urine Urobilinogen Ur Leukocyte Esterase Urine WBC (Auto) Urine RBC (Auto) Ur Squamous Epith Cells Stool Occult Blood Blood Type Blood Type Confirm Antibody Screen EKG/Cardiology Studies: Cardiology / EKG Studies 09/20/17 11:19 EKG [ELECTROCARDIOGRAM] Stat Comment: ED 15 Mode Of Transportation: STRETCHER Reason For Exam: adm Critical Care Progress Note - Nutrition Nutrition: Nutrition Category Date Time Status NPO Diet [DIET] Diets 09/20/17 Lunch Active Assessment/Plan - Assessment and Plan (Free Text) Assessment: 82 year old female with a past medical history of hypertension, osteoarthritis, and hypothroidism who was admitted to the ICU for lower GI bleed. Plan: Gastrointestinal: Lower GI bleed GI consulted. Following. Expected to go for Colonoscopy and EGD today. Protonix drip @8mcg/hr. Hematology: Anemia Hemoglobin dropped to 10.2 Status post 1 unit of 1 Unit of Platelets Cardiology: Hypertension Normotensive. Blood pressure medications held at this time. PPX -Protonix 40 Po Daily
[2017-09-21] MEDS ORDERED: Propofol 10 mg/ml Inj (20 ML) ONE (15:25)
--- NOTE | 2017-09-21 20:17 | CP.PCM.PN ---
Subjective - Date & Time of Evaluation Date of Evaluation: 09/21/17 Time of Evaluation: 19:00 - Subjective Subjective: PT SEEN AND EVALUATED AT BEDSIDE S/P CLONOSCOPY, NO SUBSTANTIAL BLEEDING, , H AND H STABLE, PT IS TRANSFERRED TO MEDICAL FLOOR, PT IS FOR POSSIBLE DISCHARGE TOMORROW9 Objective - Vital Signs/Intake and Output Vital Signs (last 24 hours): Temp Pulse Resp BP Pulse Ox 97.5 F L 62 21 137/80 100 09/21/17 16:01 09/21/17 18:00 09/21/17 18:00 09/21/17 17:31 09/21/17 18:00 Intake and Output: 09/21/17 09/22/17 18:59 06:59 Intake Total 2130 Output Total 900 Balance 1230 - Medications Medications: Current Medications Sodium Chloride (Sodium Chloride 0.9%) 1,000 mls @ 100 mls/hr IV .Q10H DAREN Last Admin: 09/21/17 16:26 Dose: 100 mls/hr Pantoprazole Sodium (Protonix Ec Tab) 40 mg PO DAILY DAREN Potassium Chloride (K-Dur 20 Meq Er Tab) 40 meq PO ONCE DAREN - Labs Labs: 09/21/17 06:07 09/21/17 06:05 PT 12.6 SECONDS (9.7-12.2) H 09/20/17 10:27 INR 1.1 09/20/17 10:27 APTT 30 SECONDS (21-34) 09/20/17 10:27 - Constitutional Appears: No Acute Distress - Head Exam Head Exam: ATRAUMATIC, NORMAL INSPECTION, NORMOCEPHALIC - Eye Exam Eye Exam: EOMI, Normal appearance, PERRL Pupil Exam: NORMAL ACCOMODATION, PERRL - Respiratory Exam Respiratory Exam: Clear to Ausculation Bilateral, NORMAL BREATHING PATTERN - Cardiovascular Exam Cardiovascular Exam: REGULAR RHYTHM, +S1, +S2. absent: Murmur - GI/Abdominal Exam GI & Abdominal Exam: Soft, Normal Bowel Sounds. absent: Tenderness - Rectal Exam Rectal Exam: Deferred Assessment and Plan (1) GI bleeding Status: Acute (2) Hypokalemia Status: Acute
[2017-09-22] MEDS: Sodium Chloride 0.9% 1,000 ML IV SCH (07:30)
[2017-09-22 07:44] VITALS: BP 138/67; PULSE 61; RESP 20; TEMP 97.9; O2SAT 98
[2017-09-22 08:02] LABS: BASO % 0.6 % (0.0-2.0); EOS # 0.8 K/uL (0.0-0.7); EOS % 11.6 % (0.0-4.0); HEMOGLOBIN 9.6 g/dL (11.0-16.0); LYMPH # 2.5 K/uL (1.0-4.3); LYMPH % 35.5 % (20.0-40.0); MEAN CELL VOLUME 84.9 fL (81.0-99.0); MEAN CORPUSCULAR HEMOGLOBIN 28.7 pg (27.0-31.0); MEAN CORPUSCULAR HGB CONC 33.7 g/dL (33.0-37.0); MEAN PLATELET VOLUME 9.5 fL (7.2-11.7); MONO # 0.6 K/uL (0.0-0.8); MONO % 8.6 % (0.0-10.0); NEUT % 43.7 % (50.0-75.0); RBC 3.36 Mil/uL (3.80-5.20); RED CELL DISTRIBUTION WIDTH 15.3 % (11.5-14.5); WHITE BLOOD COUNT 6.9 K/uL (4.8-10.8)
--- NOTE | 2017-09-22 08:18 | CP.PCM.PN ---
Subjective - Date & Time of Evaluation Date of Evaluation: 09/22/17 Time of Evaluation: 08:16 - Subjective Subjective: Patient has not had any further bleeding. No nausea, vomiting, abdominal pain. Objective - Vital Signs/Intake and Output Vital Signs (last 24 hours): Temp Pulse Resp BP Pulse Ox 97.9 F 61 20 138/67 98 09/22/17 07:41 09/22/17 07:41 09/22/17 07:41 09/22/17 07:41 09/22/17 07:41 Intake and Output: 09/22/17 09/22/17 06:59 18:59 Intake Total 1200 Output Total 300 Balance 900 - Medications Medications: Current Medications Sodium Chloride (Sodium Chloride 0.9%) 1,000 mls @ 100 mls/hr IV .Q10H DAREN Last Admin: 09/21/17 21:30 Dose: Not Given Pantoprazole Sodium (Protonix Ec Tab) 40 mg PO DAILY DAREN Potassium Chloride (K-Dur 20 Meq Er Tab) 40 meq PO ONCE DAREN - Labs Labs: 09/22/17 08:11 09/21/17 06:05 PT 12.6 SECONDS (9.7-12.2) H 09/20/17 10:27 INR 1.1 09/20/17 10:27 APTT 30 SECONDS (21-34) 09/20/17 10:27 - Constitutional Appears: No Acute Distress - Head Exam Head Exam: ATRAUMATIC, NORMOCEPHALIC - Neck Exam Neck Exam: absent: Lymphadenopathy, Thyromegaly - Respiratory Exam Respiratory Exam: NORMAL BREATHING PATTERN. absent: Rales, Rhonchi, Wheezes - Cardiovascular Exam Cardiovascular Exam: REGULAR RHYTHM, +S1, +S2. absent: Gallop, Rubs, Murmur - GI/Abdominal Exam GI & Abdominal Exam: Soft, Normal Bowel Sounds. absent: Tenderness, Mass, Organomegaly - Rectal Exam Rectal Exam: Deferred - Extremities Exam Extremities Exam: absent: Calf Tenderness, Pedal Edema Assessment and Plan (1) GI bleeding Assessment & Plan: Patient has not had any further bleeding. She is tolerating a regular diet. Blood work from today is pending. Agree with plans for discharge. Follow up in the office in two weeks. Status: Acute
[2017-09-22 08:20] LABS: ALB/GLOB RATIO 1.1 (1.0-2.1); ALBUMIN 3.1 g/dL (3.5-5.0); ALT/SGPT 25 U/L (9-52); AST/SGOT 34 U/L (14-36); BLOOD UREA NITROGEN 7 mg/dL (7-17); CALCIUM 8.6 mg/dl (8.6-10.4); GFR AFRICAN-AMERICAN > 60; GFR NON-AFRICAN AMERICAN > 60
[2017-09-22] MEDS ORDERED: Pantoprazole 40 mg EC Tab PO SCH (10:00)
--- NOTE | 2017-09-22 12:50 | CARD ---
APPROVED REPORT EKG Measurement Heart [id number] <Conclusion> Sinus rhythm with 1st degree AV block with premature supraventricular complexes Otherwise normal ECG
--- NOTE | 2017-09-22 13:17 | CP.PCM.PN ---
Subjective - Date & Time of Evaluation Date of Evaluation: 09/22/17 Time of Evaluation: 13:14 - Subjective Subjective: LABS REVIEWED WITH DR. ARMENDARIZ THIS MORNING AND HE IS CLEARING THE PT FOR D/C; SHE IS TO SEE HIM IN THE OFFICE IN 2 WEEKS. PT ALSO CLEARED BY DR. QUINTERO FOR D/.C HOME WITH F/U IN 1 WEEK. PT STATES HER PMD IS DR. JOHNSON AND SHE'D PREFER TO SEE HER IN 1 WEEK. PT VERBALIZES UNDERSTANDING THAT SHE MUST SEE EITHER Luisa QUINTERO OR DR. JOHNSON IN 1 WEEK FOR MEDICAL F/U. TO HOLD ASA UNTIL SEEN IN 1 WEEK. OTHER HOME MEDS TO CONTINUE USUAL. DAUGHTER AT BEDSIDE AND SHE ALSO VERBALIZES D/C PLAN AND F/U INFORMATION. NO FURTHER ORDERS ; ALL CONCERNS AND QUESTIONS ADDRESSED. Objective - Vital Signs/Intake and Output Vital Signs (last 24 hours): Temp Pulse Resp BP Pulse Ox 97.9 F 61 20 138/67 98 09/22/17 07:41 09/22/17 07:41 09/22/17 07:41 09/22/17 07:41 09/22/17 07:41 Intake and Output: 09/22/17 09/22/17 06:59 18:59 Intake Total 1200 Output Total 300 Balance 900 - Medications Medications: Current Medications Sodium Chloride (Sodium Chloride 0.9%) 1,000 mls @ 100 mls/hr IV .Q10H [facility] Last Admin: 09/22/17 07:30 Dose: Not Given Pantoprazole Sodium (Protonix Ec Tab) 40 mg PO DAILY DAREN Last Admin: 09/22/17 09:27 Dose: 40 mg Potassium Chloride (K-Dur 20 Meq Er Tab) 40 meq PO ONCE DAREN - Labs Labs: 09/22/17 08:11 09/22/17 07:42 PT 12.6 SECONDS (9.7-12.2) H 09/20/17 10:27 INR 1.1 09/20/17 10:27 APTT 30 SECONDS (21-34) 09/20/17 10:27
--- NOTE | 2017-09-22 23:22 | CP.PCM.DIS ---
Provider - Provider Date of Admission: 09/20/17 10:30 Attending physician: Quique Reddy MD Diagnosis - Discharge Diagnosis (1) GI bleeding Status: Acute (2) Hypokalemia Status: Acute Hospital Course - Lab Results Lab Results: Micro Results 09/20/17 18:19 Naris MRSA Culture (Admit) - Final MRSA NOT DETECTED Most Recent Lab Values WBC 6.9 K/uL (4.8-10.8) 09/22/17 08:11 RBC 3.36 Mil/uL (3.80-5.20) L 09/22/17 08:11 Hgb 9.6 g/dL (11.0-16.0) L 09/22/17 08:11 Hct 28.5 % (34.0-47.0) L 09/22/17 08:11 MCV 84.9 fL (81.0-99.0) 09/22/17 08:11 MCH 28.7 pg (27.0-31.0) 09/22/17 08:11 MCHC 33.7 g/dL (33.0-37.0) 09/22/17 08:11 RDW 15.3 % (11.5-14.5) H 09/22/17 08:11 Plt Count 175 K/uL (130-400) 09/22/17 08:11 MPV 9.5 fL (7.2-11.7) 09/22/17 08:11 Neut % (Auto) 43.7 % (50.0-75.0) L 09/22/17 08:11 Lymph % (Auto) 35.5 % (20.0-40.0) 09/22/17 08:11 Grundy % (Auto) 8.6 % (0.0-10.0) 09/22/17 08:11 Eos % (Auto) 11.6 % (0.0-4.0) H 09/22/17 08:11 Baso % (Auto) 0.6 % (0.0-2.0) 09/22/17 08:11 Neut # (Auto) 3.0 K/uL (1.8-7.0) 09/22/17 08:11 Lymph # (Auto) 2.5 K/uL (1.0-4.3) 09/22/17 08:11 Grundy # (Auto) 0.6 K/uL (0.0-0.8) 09/22/17 08:11 Eos # (Auto) 0.8 K/uL (0.0-0.7) H 09/22/17 08:11 Baso # (Auto) 0.0 K/uL (0.0-0.2) 09/22/17 08:11 PT 12.6 SECONDS (9.7-12.2) H 09/20/17 10:27 INR 1.1 09/20/17 10:27 APTT 30 SECONDS (21-34) 09/20/17 10:27 Sodium 139 mmol/L (132-148) 09/22/17 07:42 Potassium 3.8 mmol/L (3.6-5.2) 09/22/17 07:42 Chloride 107 mmol/L (98-107) 09/22/17 07:42 Carbon Dioxide 25 mmol/L (22-30) 09/22/17 07:42 Anion Gap 11 (10-20) 09/22/17 07:42 BUN 7 mg/dL (7-17) 09/22/17 07:42 Creatinine 0.6 mg/dL (0.7-1.2) L 09/22/17 07:42 Est GFR ( Amer) > 60 09/22/17 07:42 Est GFR (Non-Af Amer) > 60 09/22/17 07:42 Random Glucose 85 mg/dL (65-105) 09/22/17 07:42 Calcium 8.6 mg/dl (8.6-10.4) 09/22/17 07:42 Phosphorus 2.5 mg/dL (2.5-4.5) 09/21/17 06:05 Magnesium 1.9 mg/dL (1.6-2.3) 09/21/17 06:05 Total Bilirubin 0.4 mg/dL (0.2-1.3) 09/22/17 07:42 AST 34 U/L (14-36) 09/22/17 07:42 ALT 25 U/L (9-52) 09/22/17 07:42 Alkaline Phosphatase 52 U/L (38-126) 09/22/17 07:42 Troponin I < 0.0120 ng/mL (0.00-0.120) 09/20/17 10:27 Total Protein 5.8 g/dL (6.3-8.3) L 09/22/17 07:42 Albumin 3.1 g/dL (3.5-5.0) L 09/22/17 07:42 Globulin 2.8 gm/dL (2.2-3.9) 09/22/17 07:42 Albumin/Globulin Ratio 1.1 (1.0-2.1) 09/22/17 07:42 Lipase 89 U/L (23-300) 09/20/17 10:27 Urine Color Yellow (YELLOW) 09/20/17 12:08 Urine Clarity Hazy (Clear) 09/20/17 12:08 Urine pH 5.0 (5.0-8.0) 09/20/17 12:08 Ur Specific Sobieski 1.025 (1.003-1.030) 09/20/17 12:08 Urine Protein Negative mg/dL (NEGATIVE) 09/20/17 12:08 Urine Glucose (UA) Normal mg/dL (Normal) 09/20/17 12:08 Urine Ketones Negative mg/dL (NEGATIVE) 09/20/17 12:08 Urine Blood Negative (NEGATIVE) 09/20/17 12:08 Urine Nitrate Negative (NEGATIVE) 09/20/17 12:08 Urine Bilirubin Negative (NEGATIVE) 09/20/17 12:08 Urine Urobilinogen Normal mg/dL (0.2-1.0) 09/20/17 12:08 Ur Leukocyte Esterase Trace Ric/uL (Negative) 09/20/17 12:08 Urine WBC (Auto) 2 /hpf (0-5) 09/20/17 12:08 Urine RBC (Auto) 3 /hpf (0-3) 09/20/17 12:08 Ur Squamous Epith Cells 3 /hpf (0-5) 09/20/17 12:08 Stool Occult Blood Positive (NEGATIVE) H 09/20/17 10:27 Blood Type A POSITIVE 09/20/17 10:27 Blood Type Confirm A POSITIVE 09/20/17 10:27 Antibody Screen Negative 09/20/17 10:27 - Hospital Course Hospital Course: Patient has not had any further bleeding. She is tolerating a regular diet. Blood work from today is pending. Agree with plans for discharge. Follow up in the office in two weeks. Discharge Exam - Head Exam Head Exam: ATRAUMATIC, NORMOCEPHALIC Discharge Plan - Follow Up Plan Condition: FAIR Disposition: HOME/ ROUTINE Instructions: Hypokalemia (DC), Gastrointestinal Bleeding (DC) Additional Instructions: - SEGUIMIENTO CON EL DR. REDDY O [facility] DOCTOR PRIMARIO, DRA. JOHNSON, EN LA OFICINA DENTRO DE 5-7 BOWEN DE LA DESCARGA --- LLAME A LA OFICINA HOY PARA HACER LANDRUM HORA DE LA [place]. - SEGUIMIENTO CON EL DR. KNOWLES EN LA OFICINA EN 2 SEMANAS DE DESCARGA --- LLAME A LA OFICINA HOY PARA HACER LANDRUM HORA DE LA [place]. - CONTINUAR CON LA MEDICINAS EN [place] NORMAL. - AGOTA TU ASPIRINA HASTA QUE QUEDES QUINN POR DRA. JOHNSON O DR. REDDY. USTED CORRE UN RIESGO DE REHABILITACIN SI USTED ASUME LANDRUM ASPIRINA DEMASIADO PRONTO. - PARA CUALQUIER OTRA PREGUNTA O PREOCUPACIN, NO DUDE EN PONERSE EN CONTACTO CON EL DR. REDDY O DR. MOSER. -FOLLOW UP WITH DR. REDDY OR YOUR PRIMARY DOCTOR, DRA. JOHNSON, IN THE OFFICE WITHIN 5-7 DAYS OF DISCHARGE---CALL THE OFFICE TODAY TO MAKE YOUR APPOINTMENT TIME. -FOLLOW UP WITH DR. MOSER IN THE OFFICE IN 2 WEEKS OF DISCHARGE---CALL THE OFFICE TODAY TO MAKE YOUR APPOINTMENT TIME. -CONTINUE YOUR MEDICINE AT HOME NORMAL. -HOLD YOUR ASPIRIN UNTIL YOU ARE CLEARED BY DRA. JOHNSON OR DR. REDDY. YOU ARE AT A RISK OF RE-BLEEDING IF YOU TAKE YOUR ASPIRIN TOO SOON. -FOR ANY OTHER QUESTIONS OR CONCERNS, DON'T HESITATE TO CONTACT DR. REDDY OR DR. MOSER. Referrals: Quique Reddy MD [Staff Provider] - Clark Moser MD [Staff Provider] -
== END 2017-09-22 14:16 | disposition home or self-care (01) | DRG 379 ==
LOC: C.ER 08:47 → C.9E 10:30 → C.9I 13:59 → C.3T 09-22 05:59
PROVIDERS: ADMIT Internal Medicine; ATTEND Internal Medicine
PROC: 0DJD8ZZ Inspection of Lower Intestinal Tract, Via Natural or Artificial Opening Endoscopic (ICD-10-PCS; principal; 2017-09-21 15:25)
PROC: 0DB68ZX Excision of Stomach, Via Natural or Artificial Opening Endoscopic, Diagnostic (ICD-10-PCS; 2017-09-21 15:25)
DX: K57.91 Diverticulosis of intestine, part unspecified, without perforation or abscess with bleeding (principal); K92.1 Melena; E87.6 Hypokalemia; I10 Essential (primary) hypertension; I44.0 Atrioventricular block, first degree; K64.8 Other hemorrhoids; Z68.20 Body mass index [BMI] 20.0-20.9, adult